=== PATIENT | male | born 1985 | race Caucasian/White ===

== ENCOUNTER 2021-04-26 11:00 | Emergency (ER) | payer MEDICAID ==
[2021-04-26] MEDS ORDERED: Sodium Chloride 0.9% 10 ML Syringe FLUSH PRN (11:27)
[2021-04-26] MEDS ORDERED: Ondansetron 4 MG/2 ML SDV IVPUSH ONE (11:28)
[2021-04-26] MEDS ORDERED: fentaNYL 100 MCG/2 ML SDV IVPUSH ONE (11:28)
[2021-04-26] MEDS ORDERED: Sodium Chloride 0.9% 1,000 ML IV SCH (11:30)
--- NOTE | 2021-04-26 11:30 | EDM.PDOC ---
ED HPI GENERAL MEDICAL PROBLEM - General Chief Complaint: Abdominal Pain Stated Complaint: R SIDE ABDOMINAL PAIN Time Seen by Provider: 04/26/21 11:24 Source of Information: Reports: Patient, Family, RN Notes Reviewed History Limitations: Reports: No Limitations - History of Present Illness INITIAL COMMENTS - FREE TEXT/NARRATIVE: 46-year-old gentleman presents emergency department day complaint of abdominal pain started this morning he states initially started midline but now then goes more towards the right lower quadrant and is quite intense he has nausea and vomiting no shortness of breath or chest pain does have a history of cholecystectomy as well as ulcerative colitis Right Abdomen Pain Score (Numeric/FACES): 9 - Related Data Allergies Allergy/AdvReac Type Severity Reaction Status Date / Time *colitis med Allergy Other Uncoded 04/26/21 11:24 Home Meds: Home Meds NK [No Known Home Meds] 04/26/21 [History] Past Medical History Gastrointestinal History: Reports: Inflammatory Bowel Disease (Ulcerative colitis) Social & Family History - Tobacco Use Tobacco Use Status *Q: Current Every Day Tobacco User Years of Tobacco use: 20 Packs/Tins Daily: 0.5 - Recreational Drug Use Recreational Drug Use: No ED ROS GENERAL - Review of Systems Review Of Systems: See Below Constitutional: Denies: Fever, Chills Respiratory: Reports: No Symptoms Cardiovascular: Reports: No Symptoms GI/Abdominal: Reports: Abdominal Pain, Flatus, Nausea, Vomiting ED EXAM, GI/ABD - Physical Exam Exam: See Below Exam Limited By: No Limitations General Appearance: Alert, WD/WN, No Apparent Distress Respiratory/Chest: No Respiratory Distress, Lungs Clear, Normal Breath Sounds, No Accessory Muscle Use, Chest Non-Tender Cardiovascular: Regular Rate, Rhythm, No Murmur GI/Abdominal Exam: Soft, Tender (Right lower quadrant), Other (Psoas sign, obturator sign, heel tap sign all positive) Course - Vital Signs Last Recorded V/S: Last Vital Signs Temp 98.3 F 04/26/21 11:23 Pulse 73 04/26/21 11:23 Resp 16 04/26/21 11:23 BP 124/75 04/26/21 11:23 Pulse Ox 100 04/26/21 11:23 - Orders/Labs/Meds Orders: Active Orders 24 hr Category Date Time Status Peripheral IV Care [RC] . DIRECTED Care 04/26/21 11:27 Active Iopamidol [Isovue-300 (61%)] Med 04/26/21 12:00 Active 100 ml IV . DIRECTED Sodium Chloride 0.9% [Normal Saline] 1,000 ml Med 04/26/21 11:30 Active IV ASDIRECTED Sodium Chloride 0.9% [Normal Saline] 80 ml Med 04/26/21 12:00 Active IV ASDIRECTED Sodium Chloride 0.9% [Saline Flush] Med 04/26/21 11:27 Active 10 ml FLUSH ASDIRECTED PRN Peripheral IV Insertion Adult [OM.PC] Urgent Oth 04/26/21 11:27 Ordered Medication Orders Sodium Chloride (Normal Saline) 1,000 mls @ 500 mls/hr IV ASDIRECTED MAIDA Last Admin: 04/26/21 12:20 Dose: 500 mls/hr Documented by: ALYSSA Sodium Chloride (Normal Saline) 80 mls @ 3.5 mls/sec IV ASDIRECTED MAIDA Last Admin: 04/26/21 12:08 Dose: 3 mls/sec Documented by: CHELLY Iopamidol (Iopamidol 612 Mg/Ml 100 Ml Bottle) 100 ml IV . DIRECTED MAIDA Last Admin: 04/26/21 12:08 Dose: 100 ml Documented by: CHELLY Sodium Chloride (Sodium Chloride 0.9% 10 Ml Syringe) 10 ml FLUSH ASDIRECTED PRN PRN Reason: Keep Vein Open Last Admin: 04/26/21 11:38 Dose: 10 ml Documented by: ALYSSA Labs: Laboratory Tests 04/26/21 04/26/21 04/26/21 Range/Units 11:38 11:38 11:38 WBC 12.9 H (4.5-11.0) K/uL RBC 5.34 (4.30-5.90) M/uL Hgb 10.6 L (12.0-15.0) g/dL Hct 35.5 L (40.0-54.0) % MCV 67 L (80-98) fL MCH 20 L (27-31) pg MCHC 30 L (32-36) % Plt Count 549 H (150-400) K/uL Neut % (Auto) 84.0 H (36-66) % Lymph % (Auto) 6.6 L (24-44) % [place] % (Auto) 9.0 H (2-6) % Eos % (Auto) 0.2 L (2-4) % Baso % (Auto) 0.2 (0-1) % Sodium 141 (140-148) mmol/L Potassium 4.1 (3.6-5.2) mmol/L Chloride 106 (100-108) mmol/L Carbon Dioxide 25 (21-32) mmol/L Anion Gap 9.6 (5.0-14.0) mmol/L BUN 12 (7-18) mg/dL Creatinine 0.9 (0.8-1.3) mg/dL Est Cr Clr Drug Dosing 108.72 mL/min Estimated GFR (MDRD) > 60 (>60) Glucose 105 (74-106) mg/dL Lactic Acid 1.3 (0.4-2.0) mmol/L Calcium 8.6 (8.5-10.1) mg/dL Total Bilirubin 0.3 (0.2-1.0) mg/dL AST 14 L (15-37) U/L ALT 26 (12-78) U/L Alkaline Phosphatase 88 (46-116) U/L Total Protein 7.2 (6.4-8.2) g/dL Albumin 3.9 (3.4-5.0) g/dL Globulin 3.3 (2.3-3.5) g/dL Albumin/Globulin Ratio 1.2 (1.2-2.2) Lipase 73 (73-393) U/L Meds: Medications Generic Name Dose Route Start Last Admin Trade Name Freq PRN Reason Stop Dose Admin Sodium Chloride 1,000 mls @ 500 mls/hr 04/26/21 11:30 04/26/21 12:20 Normal Saline IV 500 mls/hr ASDIRECTED MAIDA Administration Sodium Chloride 80 mls @ 3.5 mls/sec 04/26/21 12:00 04/26/21 12:08 Normal Saline IV 3 mls/sec ASDIRECTED MAIDA Administration Iopamidol 100 ml 04/26/21 12:00 04/26/21 12:08 Iopamidol 612 Mg/Ml 100 Ml Bottle IV 100 ml . DIRECTED MAIDA Administration Sodium Chloride 10 ml 04/26/21 11:27 04/26/21 11:38 Sodium Chloride 0.9% 10 Ml Syringe FLUSH 10 ml ASDIRECTED PRN Administration Keep Vein Open Discontinued Medications Generic Name Dose Route Start Last Admin Trade Name Tobiq PRN Reason Stop Dose Admin Fentanyl 50 mcg 04/26/21 11:28 04/26/21 11:42 Fentanyl 100 Mcg/2 Ml Sdv IVPUSH 04/26/21 11:29 50 mcg ONETIME ONE Administration Hydromorphone HCl 1 mg 04/26/21 12:30 04/26/21 12:49 Hydromorphone 1 Mg/Ml Syringe IVPUSH 04/26/21 12:31 1 mg ONETIME ONE Administration Hydromorphone HCl 0.5 mg 04/26/21 13:40 Hydromorphone 0.5 Mg/0.5 Ml Syringe IVPUSH 04/26/21 13:41 ONETIME ONE Methylprednisolone Sodium Succinate 40 mg 04/26/21 13:40 Methylprednisolone Sodium Succinate 40 Mg/1 Ml Sdv IVPUSH 04/26/21 13:41 ONETIME ONE Ondansetron HCl 4 mg 04/26/21 11:28 04/26/21 11:37 Ondansetron 4 Mg/2 Ml Sdv IVPUSH 04/26/21 11:29 4 mg ONETIME ONE Administration Sodium Chloride 10 ml 04/26/21 11:51 04/26/21 12:08 Sodium Chloride 0.9% 10 Ml Syringe FLUSH 04/26/21 11:52 10 ml ONETIME ONE Administration Departure - Departure Time of Disposition: 13:45 Disposition: Home, Self-Care 01 Condition: Fair Clinical Impression: Colitis - Discharge Information Instructions: Colitis Referrals: PCP,None [Primary Care Provider] - Forms: ED Department Discharge Additional Instructions: Take full course of prednisone, use hydrocodone as needed for pain control, please follow-up with primary care as soon as possible for further evaluation which may include colonoscopy Sepsis Event Note (ED) - Evaluation Sepsis Screening Result: No Definite Risk - Focused Exam Vital Signs: Vital Signs Temp Pulse Resp BP Pulse Ox 04/26/21 11:23 98.3 F 73 16 124/75 100 04/26/21 11:21 98.3 F 73 16 124/75 100 - My Orders Last 24 Hours: My Active Orders 04/26/21 11:27 Peripheral IV Care [RC] . DIRECTED Sodium Chloride 0.9% [Saline Flush] 10 ml FLUSH ASDIRECTED PRN Peripheral IV Insertion Adult [OM.PC] Urgent 04/26/21 11:30 Sodium Chloride 0.9% [Normal Saline] 1,000 ml IV ASDIRECTED 04/26/21 12:00 Iopamidol [Isovue-300 (61%)] 100 ml IV . DIRECTED Sodium Chloride 0.9% [Normal Saline] 80 ml IV ASDIRECTED - Assessment/Plan Last 24 Hours: My Active Orders 04/26/21 11:27 Peripheral IV Care [RC] . DIRECTED Sodium Chloride 0.9% [Saline Flush] 10 ml FLUSH ASDIRECTED PRN Peripheral IV Insertion Adult [OM.PC] Urgent 04/26/21 11:30 Sodium Chloride 0.9% [Normal Saline] 1,000 ml IV ASDIRECTED 04/26/21 12:00 Iopamidol [Isovue-300 (61%)] 100 ml IV . DIRECTED Sodium Chloride 0.9% [Normal Saline] 80 ml IV ASDIRECTED Plan: Assessment Acuity = acute Site and laterality = colitis ascending colon Etiology = probable exacerbation of ulcerative colitis Manifestations = abdominal pain Location of injury = Home Lab values = WBC elevated 12.9 consistent with leukocytosis, hemoglobin low at 10.6 consistent with normochromic anemia platelets elevated 549 consistent thrombocytosis, lactic acid normal 1.3 CT scan reveals an area of concern consistent with colitis in ascending colon however malignancy cannot be ruled out recommended colonoscopy follow-up Plan I did review lab work with him provided him a copy of his CT scan results he has used prednisone in the past for flareup he was given 1 dose Solu-Medrol while in the emergency department 20 mg prednisone once a day for 7 days hydrocodone 5/325 1 tab p.o. 3 times daily as needed total #10 he is going to establish and follow-up with her primary care this week This note was dictated using [employer] voice recognition software please call with any questions on syntax or grammar.
[2021-04-26] MEDS ORDERED: Sodium Chloride 0.9% 10 ML Syringe FLUSH ONE (11:51)
[2021-04-26] MEDS ORDERED: Sodium Chloride 0.9% 80 ML IV SCH (12:00)
[2021-04-26] MEDS ORDERED: Iopamidol 612 MG/ML 100 ML Bottle IV SCH (12:00)
[2021-04-26] MEDS ORDERED: HYDROmorphone 1 MG/ML Syringe IVPUSH ONE (12:30)
--- NOTE | 2021-04-26 13:30 | CRLCT ---
For Patients: As a result of the Century Cures Act, medical imaging exams and procedure reports are released immediately into your electronic medical record. You may view this report before your referring provider. If you have questions, please contact your health care provider. INDICATION: Right lower quadrant abdomen pain. History of colitis. TECHNIQUE: CT abdomen and pelvis acquired with 100 cc Isovue-300 IV contrast. COMPARISON: None. FINDINGS: Lower chest: Unremarkable. Liver: Unremarkable. Normal in size and attenuation. No suspicious masses. Gallbladder and bile ducts: Post cholecystectomy. Pancreas: Unremarkable. No mass or inflammation. Spleen: Unremarkable. Normal in size. No masses. Adrenal glands: Unremarkable. No nodules. Kidneys: Unremarkable. No suspicious masses, stones, or hydronephrosis. GI tract: Approximately 6 cm segment of edema and inflammation causing narrowing in the distal aspect of the ascending colon. Possible phlegmon formation in the colonic wall in this area. Remainder of the GI tract is unremarkable. Normal appendix. Vasculature: Unremarkable. Mesenteric arteries are patent. Lymph nodes: No lymphadenopathy. Omentum/Peritoneum/Abdominal Wall: Unremarkable. No sign of mass or infiltration. No free air or significant free fluid. Pelvis: Unremarkable. Bones: Unremarkable for age. IMPRESSION: Focal area of colitis in the ascending colon with possible phlegmon formation in the colonic wall. Follow-up imaging or direct visualization with colonoscopy recommended after a course of treatment to exclude a malignant process. Appendix and remainder of the exam are unremarkable. Please note that all CT scans at this facility use dose modulation, iterative reconstruction, and/or weight-based dosing when appropriate to reduce radiation dose to as low as reasonably achievable. Dictated by Abdiaziz Cuadra MD @ 04/26/2021 1:28:45 PM (Electronically Signed)
[2021-04-26] MEDS ORDERED: methylPREDNISolone Sodium Succinate 40 MG/1 ML SDV IVPUSH ONE (13:40)
[2021-04-26] MEDS ORDERED: HYDROmorphone 0.5 MG/0.5 ML Syringe IVPUSH ONE (13:40)
== END 2021-04-26 14:06 | disposition home or self-care (01) ==
LOC: JP.ED 11:00
DX: K52.9 Noninfective gastroenteritis and colitis, unspecified (principal); Z88.8 Allergy status to other drugs, medicaments and biological substances; Z72.0 Tobacco use
CPT/HCPCS: 36415; 74177; 80053; 83605; 83690; 85025; 96374; 96375; 96376; 99284; J1170; J2405; J2920; J3010; J7030; Q9967